=== PATIENT | female | born 1975 | race Caucasian/White ===

== ENCOUNTER 2017-08-25 12:02 | Emergency (ER) | payer MEDICAID ==
[2017-08-25 12:45] VITALS: BMI 22.4
[2017-08-25 12:55] VITALS: TEMP 98.3
[2017-08-25] MEDS ORDERED: Sodium Chloride 0.9% 1,000 ML IV STA (13:05)
--- NOTE | 2017-08-25 13:15 | ED PDOC ---
Arrival/HPI - General Chief Complaint: Dizziness/Lightheaded Time Seen by Provider: 08/25/17 12:28 Historian: Patient - History of Present Illness Narrative History of Present Illness (Text): 08/25/17 13:12 42yo female with no PMHx who present with complaint of positional dizziness. Notes that symptom started on Tuesday and she was seen at [place] ED and was DC home with Meclizine. States she improved with meclizine and went back to work today, but she became dizzy again today at work. She describes dizziness and spinning sensation. Also reports tinnitus to her left ear and nausea and vomiting. States she took Meclizine this morning. +Frontal headache. Denies neck pain, focal weakness, slurred speech, nuchal ridgity, fever, chills, any other complaint. Past Medical History - Provider Review Nursing Documentation Reviewed: Yes - Infectious Disease Hx of Infectious Diseases: None - Neurological Hx Vertigo: Yes - Psychiatric Hx Substance Use: No - Anesthesia Hx Anesthesia: No Family/Social History - Physician Review Nursing Documentation Reviewed: Yes Family/Social History: Unknown Family HX Smoking Status: Never Smoked Hx Alcohol Use: No Hx Substance Use: No Allergies/Home Meds Allergies/Adverse Reactions: Allergies No Known Allergies Allergy (Verified 08/25/17 12:45) Home Medications: Home Meds Medication Instructions Recorded Confirmed Meclizine HCl [Bonine] 1 tab PO TID 08/25/17 08/25/17 Oxybutynin Chloride [Oxybutynin 1 tab PO DAILY 08/25/17 08/25/17 Chloride ER] Review of Systems - Physician Review All systems were reviewed & negative as marked: Yes - Review of Systems Constitutional: Normal Eyes: Normal ENT: Normal Respiratory: Normal Cardiovascular: Normal Gastrointestinal: Normal Genitourinary Female: Normal Musculoskeletal: Normal Skin: Normal Neurological: Dizziness. absent: Focal Weakness, Speech Changes, Facial Droop Endocrine: Normal Hemo/Lymphatic: Normal Psychiatric: Normal Physical Exam Vital Signs Reviewed: Yes Vital Signs Temp Pulse Resp BP Pulse Ox 08/25/17 13:53 65 18 130/56 L 100 08/25/17 12:51 98.3 F 63 18 95/73 L 100 Temperature: Afebrile Blood Pressure: Normal Pulse: Regular Respiratory Rate: Normal Appearance: Positive for: Well-Appearing, Non-Toxic, Comfortable Pain Distress: None Mental Status: Positive for: Alert and Oriented X 3 - Systems Exam Head: Present: Atraumatic, Normocephalic Pupils: Present: PERRL Extroacular Muscles: Present: EOMI Conjunctiva: Present: Normal Mouth: Present: Moist Mucous Membranes Neck: Present: Normal Range of Motion Respiratory/Chest: Present: Clear to Auscultation, Good Air Exchange. No: Respiratory Distress, Accessory Muscle Use Cardiovascular: Present: Regular Rate and Rhythm, Normal S1, S2. No: Murmurs Abdomen: No: Tenderness, Distention, Peritoneal Signs Back: Present: Normal Inspection Upper Extremity: Present: Normal Inspection. No: Cyanosis, Edema Lower Extremity: Present: Normal Inspection. No: Edema Neurological: Present: GCS=15, CN II-XII Intact, Speech Normal, Motor Func Grossly Intact, Normal Sensory Function, Normal Cerebellar Funct, Norm Deep Tendon Reflexes, Gait Normal, Memory Normal, Normal 2Pt Descrimination, Other ( No focal neurological deficit) Skin: Present: Warm, Dry, Normal Color. No: Rashes Psychiatric: Present: Alert, Oriented x 3, Normal Insight, Normal Concentration Medical Decision Making ED Course and Treatment: 08/25/17 14:23 Pt presented for stated history. she was neurologically intact in ED. On re evaluation she notes that her symptoms improved. Lab was noted with mild leukocytosis, otherwise unremarkable. Head CT was negative. Dizziness could be vertigo secondary to labyrinthitis Result was DW the pt. She already have meclizine at home. She was advised to take it every 6hrs as needed for dizziness. Reglan rx was given. She was referred to ENT/Neurologist. - Lab Interpretations Lab Results: 08/25/17 13:20 08/25/17 13:20 Lab Results 08/25/17 13:20: Sodium 145, Potassium 3.6, Chloride 107, Carbon Dioxide 27, Anion Gap 14, BUN 11, Creatinine 0.5 L, Est GFR ( Amer) > 60, Est GFR ( Non-Af Amer) > 60, Random Glucose 90, Calcium 8.9, Total Bilirubin 0.2, AST 26, ALT 31, Alkaline Phosphatase 63, Total Protein 7.1, Albumin 4.3, Globulin 2.7, Albumin/Globulin Ratio 1.6 08/25/17 13:20: Urine Color Yellow, Urine Appearance Clear, Urine pH 6.0, Ur Specific [place] 1.010, Urine Protein Negative, Urine Glucose (UA) Negative, Urine Ketones Negative, Urine Blood Trace-lysed H, Urine Nitrate Negative, Urine Bilirubin Negative, Urine Urobilinogen 0.2, Ur Leukocyte Esterase Negative , Urine RBC Negative, Urine WBC Negative, Ur Epithelial Cells 0 - 2 08/25/17 13:20: PT 11.8, INR 1.03, APTT 28.1 08/25/17 13:20: WBC 11.6 H, RBC 4.35, Hgb 13.3, Hct 39.5, MCV 90.8, MCH 30.6, MCHC 33.7, RDW 12.7, Plt Count 208, MPV 10.5, Gran % 78.1 H, Lymph % (Auto) 17.5 L, [place] % (Auto) 3.9, Eos % (Auto) 0.3 L, Baso % (Auto) 0.2, Gran # 9.08 H , Lymph # (Auto) 2.0, [place] # (Auto) 0.5, Eos # (Auto) 0.0, Baso # (Auto) 0.02 - RAD Interpretation Radiology Orders: 08/25/17 13:31 HEAD W/O CONTRAST [CT] Stat - Medication Orders Current Medication Orders: Metoclopramide HCl (Reglan) 10 mg IVP STAT STA Stop: 08/25/17 14:21 Discontinued Medications Acetaminophen (Tylenol 325mg Tab) 650 mg PO STAT STA Stop: 08/25/17 13:32 Last Admin: 08/25/17 14:05 Dose: 650 mg Diphenhydramine HCl (Benadryl) 25 mg IVP STAT STA Stop: 08/25/17 13:32 Last Admin: 08/25/17 14:07 Dose: 25 mg IVP Administration Document 08/25/17 14:07 SS (Rec: 08/25/17 14:07 SS [id number]) Charges for Administration # of IVP Administrations 1 Sodium Chloride (Sodium Chloride 0.9%) 1,000 mls @ 999 mls/hr IV .Q1H1M STA Stop: 08/25/17 14:05 Last Admin: 08/25/17 13:36 Dose: 999 mls/hr eMAR Start Stop Document 08/25/17 13:36 SS (Rec: 08/25/17 13:36 SS [id number]) Intravenous Solution Start Date 08/25/17 Start Time 13:36 End Date 08/25/17 End time 14:36 Total Infusion Time 60 Meclizine HCl (Antivert) 25 mg PO STAT STA Stop: 08/25/17 13:07 Last Admin: 08/25/17 13:32 Dose: 25 mg Disposition/Present on Arrival - Present on Arrival Any Indicators Present on Arrival: No History of DVT/PE: No History of Uncontrolled Diabetes: No Urinary Catheter: No History of Decub. Ulcer: No History Surgical Site Infection Following: None - Disposition Have Diagnosis and Disposition been Completed?: Yes Diagnosis: Vertigo Disposition: HOME/ ROUTINE Disposition Time: 14:30 Patient Plan: Discharge Condition: STABLE Discharge Instructions (ExitCare): Vertigo (a Type of Dizziness), Labyrinthitis Additional Instructions: Follow up with ENT/Neurologist Return to ED for any new or worsening symptoms Referrals: Chandler Barrera DO [Staff Provider] - Follow up with primary Gopal Ramírez MD [Staff Provider] - Follow up with primary Forms: [employer] (Yemeni)
[2017-08-25] MEDS ORDERED: DiphenhydrAMINE 50 mg/ml Inj IVP STA (13:31)
[2017-08-25 13:49] LABS: BASO # 0.02 K/mm3 (0.0-2.0); BASO % 0.2 % (0.0-3.0); EOS % 0.3 % (1.5-5.0); GRAN # 9.08 (1.4-6.5); GRAN % 78.1 % (50.0-68.0); HEMOGLOBIN 13.3 g/dL (12.0-16.0); LYMPH % 17.5 % (22.0-35.0); MEAN CELL VOLUME 90.8 fl (80.0-105.0); MEAN CORPUSCULAR HEMOGLOBIN 30.6 pg (25.0-35.0); MEAN CORPUSCULAR HGB CONC 33.7 g/dl (31.0-37.0); MEAN PLATELET VOLUME 10.5 fl (7.0-11.0); MONO # 0.5 (0.1-0.6); MONO % 3.9 % (1.0-6.0); RBC 4.35 10^6/uL (3.5-6.1); RED CELL DISTRIBUTION WIDTH 12.7 % (11.5-14.5); WHITE BLOOD COUNT 11.6 10^3/ul (4.5-11.0)
[2017-08-25 13:50] LABS: URINE BILIRUBIN NEGATIVE (NEGATIVE); URINE BLOOD TRACE-LYSED (NEGATIVE); URINE GLUCOSE (UA) NEGATIVE (NEGATIVE); URINE LEUKOCYTE ESTERASE NEGATIVE Leu/uL (NEGATIVE); URINE PROTEIN NEGATIVE mg/dL (<30 mg/dL); URINE UROBILINOGEN 0.2 E.U./dL (<1 E.U./dL)
--- NOTE | 2017-08-25 13:52 | CT ---
PROCEDURE: CT HEAD WITHOUT CONTRAST. HISTORY: dizziness/headache COMPARISON: None available. TECHNIQUE: Axial computed tomography images were obtained through the head/brain without intravenous contrast. Radiation dose: Total exam DLP = 903 mGy-cm. This CT exam was performed using one or more of the following dose reduction techniques: Automated exposure control, adjustment of the mA and/or kV according to patient size, and/or use of iterative reconstruction technique. FINDINGS: HEMORRHAGE: No intracranial hemorrhage. BRAIN: No mass effect or edema. No atrophy or chronic microvascular ischemic changes. VENTRICLES: Unremarkable. No hydrocephalus. CALVARIUM: Unremarkable. PARANASAL SINUSES: Unremarkable as visualized. No significant inflammatory changes. MASTOID AIR CELLS: Unremarkable as visualized. No inflammatory changes. OTHER FINDINGS: None. IMPRESSION: Normal CT of the Head.
[2017-08-25 13:54] LABS: INR 1.03 (0.93-1.08); PARTIAL THROMBOPLASTIN TIME 28.1 Seconds (25.1-36.5); PROTHROMBIN TIME 11.8 SECONDS (9.4-12.5); URINE APPEARANCE CLEAR (CLEAR); URINE COLOR YELLOW (YELLOW)
[2017-08-25 13:58] LABS: ALB/GLOB RATIO 1.6 (1.1-1.8); ALBUMIN 4.3 g/dL (3.0-4.8); ALT/SGPT 31 U/L (7-56); AST/SGOT 26 U/L (14-36); BLOOD UREA NITROGEN 11 mg/dL (7-21); CALCIUM 8.9 mg/dL (8.4-10.5); GFR AFRICAN-AMERICAN > 60; GFR NON-AFRICAN AMERICAN > 60
[2017-08-25 14:05] LABS: URINE EPITHELIAL CELLS 0 - 2 /hpf (0-5); URINE RBC NEGATIVE /hpf (0-2); URINE WBC NEGATIVE /hpf (0-6)
[2017-08-25 14:53] VITALS: BP 113/70; PULSE 77; O2SAT 98
[2017-08-25 16:18] VITALS: RESP 18
== END 2017-08-25 16:16 | disposition home or self-care (01) ==
LOC: ED 12:02 → MERGE 12:02 → ED 16:16
DX: R42 Dizziness and giddiness (principal)
CPT/HCPCS: 70450; 80053; 81001; 85025; 85610; 85730; 96361; 96374; 96375; 99285; J1200; J2765; J7040

== ENCOUNTER 2017-09-12 17:06 | Inpatient (IN) | payer MEDICAID ==
[2017-09-12] MEDS ORDERED: Sodium Chloride 0.9% 1,000 ML IV STA (17:41)
--- NOTE | 2017-09-12 17:45 | ED PDOC ---
Arrival/HPI - General Chief Complaint: Dizziness/Lightheaded Time Seen by Provider: 09/12/17 17:12 Historian: Patient, Family - History of Present Illness Narrative History of Present Illness (Text): 09/12/17 17:42 42 year old female presents to the Emergency department complaining of dizziness described as room-spinning, as well as nausea, vomiting, and headache. Patient reports symptoms began approximately 2 weeks ago when she was evaluated here in the Emergency department. Patient has been taking Prednisone and Meclizine. Today the patient took Meclizine x1 at 15:00. Patient denies any fever, chills, chest pain, shortness of breath, diarrhea, urinary symptoms, back pain, neck pain, or any other complaints. Dr. Hirsch Time/Duration: < month (2 weeks ago) Symptom Onset: Gradual Symptom Course: Unchanged Activities at Onset: Rest Context: Home Past Medical History - Provider Review Nursing Documentation Reviewed: Yes - Past History Past History: No Previous - Infectious Disease Hx of Infectious Diseases: None - Past Medical History Past Medical History: No Previous - Cardiac Hx Cardiac Disorders: No - Pulmonary Hx Respiratory Disorders: No - Neurological Hx Neurological Disorder: Yes Hx Vertigo: Yes - HEENT Hx HEENT Disorder: Yes Other/Comment: RECENTLY SEEN BY ENT - Renal Hx Renal Disorder: No - Endocrine/Metabolic Hx Endocrine Disorders: No - Hematological/Oncological Hx Blood Disorders: No - Integumentary Hx Dermatological Disorder: No - Musculoskeletal/Rheumatological Hx Musculoskeletal Disorders: No - Gastrointestinal Hx Gastrointestinal Disorders: No - Genitourinary/Gynecological Hx Genitourinary Disorders: No - Psychiatric Hx Psychophysiologic Disorder: No Hx Substance Use: No - Surgical History Hx Section: Yes - Anesthesia Hx Anesthesia: Yes Family/Social History - Physician Review Nursing Documentation Reviewed: Yes Family/Social History: Unknown Family HX Smoking Status: Never Smoked Hx Alcohol Use: No Hx Substance Use: No Allergies/Home Meds Allergies/Adverse Reactions: Allergies No Known Allergies Allergy (Verified 09/12/17 17:15) Review of Systems - Physician Review All systems were reviewed & negative as marked: Yes - Review of Systems Constitutional: absent: Fevers, Night Sweats Respiratory: absent: SOB Cardiovascular: absent: Chest Pain Gastrointestinal: Nausea, Vomiting. absent: Diarrhea Genitourinary Female: absent: Dysuria Musculoskeletal: absent: Back Pain, Neck Pain Neurological: Headache, Dizziness Physical Exam Vital Signs Reviewed: Yes Vital Signs Temp Pulse Resp BP Pulse Ox 09/12/17 21:35 72 18 112/69 98 09/12/17 17:17 97.5 F L 69 16 94/63 L 97 Temperature: Hypothermic Blood Pressure: Hypotensive Pulse: Regular Respiratory Rate: Normal Appearance: Positive for: Well-Appearing, Non-Toxic, Comfortable Pain Distress: None Mental Status: Positive for: Alert and Oriented X 3 - Systems Exam Head: Present: Atraumatic, Normocephalic Pupils: Present: Other (horizontal nystagmus) Extroacular Muscles: Present: EOMI Conjunctiva: Present: Normal Mouth: Present: Moist Mucous Membranes Neck: Present: Normal Range of Motion Respiratory/Chest: Present: Clear to Auscultation, Good Air Exchange. No: Respiratory Distress, Accessory Muscle Use Cardiovascular: Present: Regular Rate and Rhythm, Normal S1, S2. No: Murmurs Abdomen: No: Tenderness, Distention, Peritoneal Signs Back: Present: Normal Inspection Upper Extremity: Present: Normal Inspection. No: Cyanosis, Edema Lower Extremity: Present: Normal Inspection. No: Edema Neurological: Present: GCS=15, CN II-XII Intact, Speech Normal Skin: Present: Warm, Dry, Normal Color. No: Rashes Psychiatric: Present: Alert, Oriented x 3, Normal Insight, Normal Concentration Medical Decision Making ED Course and Treatment: 09/12/17 17:49 Impression: 42 year old female presents to the Emergency department complaining of dizziness with associated nausea, vomiting, and headache. Differential Diagnosis included but are not limited to: vertigo Plan: -- Urinalysis -- Labs -- Antivert, Zofran, Sodium Chloride IV fluids -- Reassess and disposition Prior Visits: Notes and results from previous visits were reviewed. Patient was last seen in the emergency department on 08/25/17, was diagnosed with vertigo, and was discharged home. Progress Notes: 09/16/17 22:31 persistent vertigo, symptoms mildly improved. discussed with dr covington accepts for obs - Lab Interpretations Lab Results: 09/14/17 08:00 09/14/17 08:00 Lab Results 09/14/17 08:00: 25-OH Vitamin D Total 14.5 L 09/14/17 08:00: Vitamin B12 720, Free T3 pg/mL 4.44 09/14/17 08:00: Sodium 138, Potassium 3.8, Chloride 103, Carbon Dioxide 27, Anion Gap 12, BUN 19, Creatinine 0.7, Est GFR ( Amer) > 60, Est GFR (Non- Af Amer) > 60, Random Glucose 81, Calcium 8.5, Total Bilirubin 0.6, AST 14, ALT 28, Alkaline Phosphatase 48, Total Protein 5.9, Albumin 3.3, Globulin 2.6, Albumin/Globulin Ratio 1.3 09/14/17 08:00: WBC 10.1, RBC 4.81, Hgb 14.8, Hct 43.3, MCV 90.0, MCH 30.8, MCHC 34.2, RDW 12.7, Plt Count 197, MPV 9.6, Gran % 52.7, Lymph % (Auto) 39.0 H , [place] % (Auto) 7.5 H, Eos % (Auto) 0.7 L, Baso % (Auto) 0.1, Gran # 5.30, Lymph # (Auto) 3.9 H, [place] # (Auto) 0.8 H, Eos # (Auto) 0.1, Baso # (Auto) 0.01 09/13/17 12:30: Influenza Typ A,B (EIA) Negative for flu a/b 09/13/17 11:31: Urine Color Yellow, Urine Appearance Clear, Urine pH 6.0, Ur Specific [place] <= 1.005, Urine Protein Negative, Urine Glucose (UA) Negative, Urine Ketones Negative, Urine Blood Negative, Urine Nitrate Negative, Urine Bilirubin Negative, Urine Urobilinogen 0.2, Ur Leukocyte Esterase Negative, Urine HCG, Qual Negative 09/13/17 05:30: Sodium 139, Potassium 3.8, Chloride 105, Carbon Dioxide 27, Anion Gap 11, BUN 13, Creatinine 0.5 L, Est GFR ( Amer) > 60, Est GFR ( Non-Af Amer) > 60, Random Glucose 76, Calcium 8.6, Phosphorus 5.0 H, Magnesium 2.2, Total Bilirubin 0.7, AST 16, ALT 29, Alkaline Phosphatase 45, Total Protein 5.8, Albumin 3.2, Globulin 2.6, Albumin/Globulin Ratio 1.3 09/13/17 05:30: WBC 12.5 H, RBC 4.41, Hgb 13.5, Hct 39.9, MCV 90.5, MCH 30.6, MCHC 33.8, RDW 12.9, Plt Count 215, MPV 10.1, Gran % 59.5, Lymph % (Auto) 32.4, [place] % (Auto) 7.4 H, Eos % (Auto) 0.6 L, Baso % (Auto) 0.1, Gran # 7.44 H, Lymph # (Auto) 4.1 H, [place] # (Auto) 0.9 H, Eos # (Auto) 0.1, Baso # (Auto) 0.01 09/12/17 19:28: PT 11.8, INR 1.03 09/12/17 18:30: Beta HCG, Quant < 2.39 09/12/17 18:30: Sodium 136, Potassium 3.6, Chloride 101, Carbon Dioxide 25, Anion Gap 14, BUN 15, Creatinine 0.4 L, Est GFR ( Amer) > 60, Est GFR ( Non-Af Amer) > 60, Random Glucose 117 H, Calcium 8.9, Total Bilirubin 0.6, AST 14 D, ALT 25, Alkaline Phosphatase 57, Total Protein 6.2, Albumin 3.6, Globulin 2.6, Albumin/Globulin Ratio 1.4 09/12/17 18:30: WBC 14.6 H D, RBC 4.18, Hgb 13.1, Hct 37.2, MCV 89.0, MCH 31.3, MCHC 35.2, RDW 12.6, Plt Count 150, MPV 11.7 H, Gran % 85.7 H, Lymph % (Auto) 10.7 L, [place] % (Auto) 3.4, Eos % (Auto) 0.1 L, Baso % (Auto) 0.1, Gran # 12.55 H , Lymph # (Auto) 1.6, [place] # (Auto) 0.5, Eos # (Auto) 0.0, Baso # (Auto) 0.01 - RAD Interpretation Radiology Orders: 09/13/17 09:36 HEAD W/O CONTRAST [CT] Stat 09/13/17 10:38 BRAIN WITHOUT CONTRAST [MRI] Stat 09/14/17 09:22 BRAIN WITH CONTRAST [MRI] Stat - Medication Orders Current Medication Orders: Discontinued Medications Diazepam (Valium) 2 mg PO STAT STA PRN Reason: Protocol Stop: 09/12/17 19:08 Last Admin: 09/12/17 19:22 Dose: 2 mg Diazepam (Valium) 5 mg PO BID JUAREZ PRN Reason: Protocol Last Admin: 09/14/17 09:14 Dose: 5 mg Behavioural Document 09/14/17 09:14 VS (Rec: 09/14/17 09:14 VS [id number]) Maintenance Maintenance Dose Yes Re-Assess: Reassess Psych Meds Document 09/14/17 10:14 VS (Rec: 09/14/17 11:00 VS [id number]) Reassess Psych Med Effective Diazepam (Valium) 2 mg PO Q12 JUAREZ PRN Reason: Protocol Last Admin: 09/16/17 09:02 Dose: Not Given Non-Admin Reason: Patient Refused Enoxaparin Sodium (Lovenox) 30 mg SC DAILY JUAREZ PRN Reason: Protocol Last Admin: 09/16/17 09:01 Dose: 30 mg Subcutaneous Administrations Document 09/16/17 09:01 BIR (Rec: 09/16/17 09:01 BIR [id number]) Charges for Administration # of Subcutaneous Administrations 1 Ergocalciferol (Drisdol 50,000 Intl Units Cap) 1 cap PO Q7D [facility] Last Admin: 09/14/17 21:09 Dose: 1 cap Famotidine (Pepcid) 20 mg PO 1000,2200 [facility] Last Admin: 09/16/17 09:02 Dose: 20 mg Sodium Chloride (Sodium Chloride 0.9%) 1,000 mls @ 999 mls/hr IV .Q1H1M STA Stop: 09/12/17 18:41 Last Admin: 09/12/17 18:30 Dose: 999 mls/hr eMAR Start Stop Document 09/12/17 18:30 HI (Rec: 09/12/17 18:31 HI [id number]) Intravenous Solution Start Date 09/12/17 Start Time 18:31 Sodium Chloride (Sodium Chloride 0.9%) 1,000 mls @ 100 mls/hr IV .Q10H JUAREZ Stop: 09/14/17 21:44 Last Admin: 09/14/17 12:15 Dose: 100 mls/hr Comments: med not able to scan eMAR Start Stop Document 09/14/17 12:15 VS (Rec: 09/14/17 12:15 VS [id number]) Intravenous Solution Start Date 09/14/17 Start Time 12:15 End Date 09/14/17 Meclizine HCl (Antivert) 25 mg PO STAT STA Stop: 09/12/17 17:42 Last Admin: 09/12/17 18:31 Dose: 25 mg Meclizine HCl (Antivert) 12.5 mg PO Q6H PRN PRN Reason: vertigo Meclizine HCl (Antivert) 25 mg PO Q6H JUAREZ Last Admin: 09/14/17 05:36 Dose: 25 mg Meclizine HCl (Antivert) 25 mg PO Q6H JUAREZ Last Admin: 09/16/17 05:23 Dose: 25 mg Ondansetron HCl (Zofran Inj) 4 mg IVP STAT STA Stop: 09/12/17 17:42 Last Admin: 09/12/17 18:31 Dose: 4 mg IVP Administration Document 09/12/17 18:31 HI (Rec: 09/12/17 18:31 PA [id number]) Charges for Administration # of IVP Administrations 1 Ondansetron HCl (Zofran Inj) 4 mg IVP Q6H PRN PRN Reason: Nausea/Vomiting - Scribe Statement The provider has reviewed the documentation as recorded by the Star Carbone Provider Scribe Attestation: All medical record entries made by the Lolaiberic were at my direction and personally dictated by me. I have reviewed the chart and agree that the record accurately reflects my personal performance of the history, physical exam, medical decision making, and the department course for this patient. I have also personally directed, reviewed, and agree with the discharge instructions and disposition. Disposition/Present on Arrival - Present on Arrival Any Indicators Present on Arrival: No History of DVT/PE: No History of Uncontrolled Diabetes: No Urinary Catheter: No History of Decub. Ulcer: No History Surgical Site Infection Following: None - Disposition Have Diagnosis and Disposition been Completed?: Yes Diagnosis: Vertigo Disposition: HOSPITALIZED Disposition Time: 07:00 Condition: STABLE
[2017-09-12 18:39] LABS: BASO # 0.01 K/mm3 (0.0-2.0); BASO % 0.1 % (0.0-3.0); EOS % 0.1 % (1.5-5.0); GRAN # 12.55 (1.4-6.5); GRAN % 85.7 % (50.0-68.0); HEMOGLOBIN 13.1 g/dL (12.0-16.0); LYMPH # 1.6 (1.2-3.4); LYMPH % 10.7 % (22.0-35.0); MEAN CORPUSCULAR HEMOGLOBIN 31.3 pg (25.0-35.0); MEAN CORPUSCULAR HGB CONC 35.2 g/dl (31.0-37.0); MEAN PLATELET VOLUME 11.7 fl (7.0-11.0); MONO # 0.5 (0.1-0.6); MONO % 3.4 % (1.0-6.0); RBC 4.18 10^6/uL (3.5-6.1); RED CELL DISTRIBUTION WIDTH 12.6 % (11.5-14.5); WHITE BLOOD COUNT 14.6 10^3/ul (4.5-11.0)
[2017-09-12 18:57] LABS: ALB/GLOB RATIO 1.4 (1.1-1.8); ALBUMIN 3.6 g/dL (3.0-4.8); ALT/SGPT 25 U/L (7-56); AST/SGOT 14 U/L (14-36); BLOOD UREA NITROGEN 15 mg/dL (7-21); CALCIUM 8.9 mg/dL (8.4-10.5); GFR AFRICAN-AMERICAN > 60; GFR NON-AFRICAN AMERICAN > 60
[2017-09-12 19:45] LABS: INR 1.03 (0.93-1.08); PROTHROMBIN TIME 11.8 SECONDS (9.4-12.5)
--- NOTE | 2017-09-12 22:22 | CP.PCM.HP ---
<Compa Michaels - Last Filed: 09/12/17 23:28> History of Present Illness - History of Present Illness History of Present Illness: PGY-1 H&P for Dr. Pérez CC: "I am unable to stand up" This is a 42 year old female with PMHx vertigo who presents for worsening dizziness. Patient states that she was diagnosed with vertigo about 4 weeks ago. She went to see ENT who prescribed a Prednisone taper of which the last dose was scheduled for this morning. Patient states that the steroids did help to alleviate the symptoms. She first noticed mild dizziness yesterdayafternoon, but as of 15:00 today, it has worsened to the point where she feels that the room is spinning even at rest. She has vomited twice today and is still nauseous. However, she was able to tolerate some apple juice given in the ED. Patient states that she had some tinnitus in her left ear as of this morning. She denies headache but is complaining of some intermittent numbness on the right side of the cheek. Patient also complaining of weakness secondary to dizziness and nausea. In the ED, she was given Valium which helped briefly as well as the Bayron maneuver which did not help relieve any symptoms. PMHx: Vertigo PSHx: x2, appendectomy Allergies: NKDA Social: Denies alcohol, tobacco, drugs. Lives with and 2 children. Pre- school worker. Family Hx: Denies Home medications: Meclizine, just finished Prednisone taper prescribed by ENT PMD: Dr. Hirsch ENT: Dr. Sheikh Present on Admission - Present on Admission Any Indicators Present on Admission: No Review of Systems - Constitutional Constitutional: absent: Chills, Fever - EENT Eyes: absent: Change in Vision Ears: absent: Decreased Hearing Nose/Mouth/Throat: absent: Nasal Congestion - Cardiovascular Cardiovascular: absent: Chest Pain - Respiratory Respiratory: absent: Dyspnea - Gastrointestinal Gastrointestinal: Nausea, Vomiting. absent: Abdominal Pain, Constipation, Diarrhea - Genitourinary Genitourinary: absent: Dysuria - Musculoskeletal Musculoskeletal: Numbness - Neurological Neurological: Dizziness, Numbness, Vertigo, Weakness. absent: Tingling - Psychiatric Psychiatric: absent: Anxiety - Endocrine Endocrine: absent: Palpitations Past Patient History - Infectious Disease Hx of Infectious Diseases: None - Past Social History Smoking Status: Never Smoked - CARDIAC Hx Cardiac Disorders: No - PULMONARY Hx Respiratory Disorders: No - NEUROLOGICAL Hx Neurological Disorder: Yes Hx Vertigo: Yes - HEENT Hx HEENT Problems: Yes Other/Comment: RECENTLY SEEN BY ENT - RENAL Hx Chronic Kidney Disease: No - ENDOCRINE/METABOLIC Hx Endocrine Disorders: No - HEMATOLOGICAL/ONCOLOGICAL Hx Blood Disorders: No - INTEGUMENTARY Hx Dermatological Problems: No - MUSCULOSKELETAL/RHEUMATOLOGICAL Hx Musculoskeletal Disorders: No - GASTROINTESTINAL Hx Gastrointestinal Disorders: No - GENITOURINARY/GYNECOLOGICAL Hx Genitourinary Disorders: No - PSYCHIATRIC Hx Psychophysiologic Disorder: No Hx Substance Use: No - SURGICAL HISTORY Hx Section: Yes - ANESTHESIA Hx Anesthesia: Yes Meds Allergies/Adverse Reactions: Allergies Allergy/AdvReac Type Severity Reaction Status Date / Time No Known Allergies Allergy Verified 09/12/17 17:15 Physical Exam - Constitutional Appears: No Acute Distress - Head Exam Head Exam: ATRAUMATIC, NORMOCEPHALIC - Eye Exam Eye Exam: EOMI, PERRL - ENT Exam ENT Exam: Mucous Membranes Moist, Normal External Ear Exam, TM's Normal Bilaterally - Respiratory Exam Respiratory Exam: Clear to Auscultation Bilateral, NORMAL BREATHING PATTERN. absent: Rales, Rhonchi, Wheezes - Cardiovascular Exam Cardiovascular Exam: REGULAR RHYTHM, +S1, +S2 - GI/Abdominal Exam GI & Abdominal Exam: Normal Bowel Sounds, Soft. absent: Distended, Tenderness - Extremities Exam Extremities exam: Negative for: pedal edema - Neurological Exam Neurological exam: Alert, CN II-XII Intact, Oriented x3 Additional comments: Muscle strength 4/5 throughout, effort limited due to dizziness - Psychiatric Exam Psychiatric exam: Normal Affect, Normal Mood - Skin Skin Exam: Dry, Warm Results - Vital Signs Recent Vital Signs: Last Vital Signs Temp 97.5 F L 09/12/17 17:17 Pulse 69 09/12/17 17:17 Resp 16 09/12/17 17:17 BP 94/63 L 09/12/17 17:17 Pulse Ox 97 09/12/17 17:17 - Labs Result Diagrams: 09/12/17 18:30 09/12/17 18:30 Assessment & Plan - Assessment and Plan (Free Text) Assessment: This is a 42 year old female with PMHx vertigo who presents for worsening dizziness. Plan: 1. Vertigo Head CT not repeated as recent one on record with no acute abnormalities Valium 5 mg PO BID JUAREZ Meclizine Q6 prn dizziness Neurology consult Considered MRI but will defer to neurology input Zofran prn Discussed with Dr. Beto Michaels PGY-1 <Sixto Pérez - Last Filed: 09/13/17 01:49> Results - Vital Signs Recent Vital Signs: Last Vital Signs Temp 98 F 09/13/17 01:08 Pulse 74 09/13/17 01:08 Resp 19 09/13/17 01:08 BP 120/76 09/13/17 01:08 Pulse Ox 98 09/12/17 22:22 - Labs Result Diagrams: 09/12/17 18:30 09/12/17 18:30 Attending/Attestation - Attestation I have personally seen and examined this patient.: Yes I have fully participated in the care of the patient.: Yes I have reviewed all pertinent clinical information: Yes Notes (Text): 09/13/17 01:48 Patient was seen when she was in bed # 7 in the ER. Agree with history, physical examination, assessment and plan.
[2017-09-13 01:23] VITALS: BMI 26.4
[2017-09-13 06:32] LABS: BASO # 0.01 K/mm3 (0.0-2.0); BASO % 0.1 % (0.0-3.0); EOS # 0.1 (0.0-0.7); EOS % 0.6 % (1.5-5.0); GRAN # 7.44 (1.4-6.5); GRAN % 59.5 % (50.0-68.0); HEMOGLOBIN 13.5 g/dL (12.0-16.0); LYMPH # 4.1 (1.2-3.4); LYMPH % 32.4 % (22.0-35.0); MEAN CELL VOLUME 90.5 fl (80.0-105.0); MEAN CORPUSCULAR HEMOGLOBIN 30.6 pg (25.0-35.0); MEAN CORPUSCULAR HGB CONC 33.8 g/dl (31.0-37.0); MEAN PLATELET VOLUME 10.1 fl (7.0-11.0); MONO # 0.9 (0.1-0.6); MONO % 7.4 % (1.0-6.0); RBC 4.41 10^6/uL (3.5-6.1); RED CELL DISTRIBUTION WIDTH 12.9 % (11.5-14.5); WHITE BLOOD COUNT 12.5 10^3/ul (4.5-11.0)
[2017-09-13 07:53] LABS: ALB/GLOB RATIO 1.3 (1.1-1.8); ALBUMIN 3.2 g/dL (3.0-4.8); ALT/SGPT 29 U/L (7-56); AST/SGOT 16 U/L (14-36); BLOOD UREA NITROGEN 13 mg/dL (7-21); CALCIUM 8.6 mg/dL (8.4-10.5); GFR AFRICAN-AMERICAN > 60; GFR NON-AFRICAN AMERICAN > 60
--- NOTE | 2017-09-13 10:37 | CT ---
PROCEDURE: CT HEAD WITHOUT CONTRAST. HISTORY: r/o cva COMPARISON: 08/25/2017 TECHNIQUE: Axial computed tomography images were obtained through the head/brain without intravenous contrast. Radiation dose: Total exam DLP = 922 mGy-cm. This CT exam was performed using one or more of the following dose reduction techniques: Automated exposure control, adjustment of the mA and/or kV according to patient size, and/or use of iterative reconstruction technique. FINDINGS: HEMORRHAGE: No intracranial hemorrhage. BRAIN: No mass effect or edema. No atrophy or chronic microvascular ischemic changes. VENTRICLES: Unremarkable. No hydrocephalus. CALVARIUM: Unremarkable. PARANASAL SINUSES: Unremarkable as visualized. No significant inflammatory changes. MASTOID AIR CELLS: Unremarkable as visualized. No inflammatory changes. OTHER FINDINGS: None. IMPRESSION: No acute intracranial findings
[2017-09-13 11:41] LABS: URINE BILIRUBIN NEGATIVE (NEGATIVE); URINE BLOOD NEGATIVE (NEGATIVE); URINE GLUCOSE (UA) NEGATIVE (NEGATIVE); URINE LEUKOCYTE ESTERASE NEGATIVE Leu/uL (NEGATIVE); URINE PROTEIN NEGATIVE mg/dL (<30 mg/dL); URINE UROBILINOGEN 0.2 E.U./dL (<1 E.U./dL)
[2017-09-13 11:42] LABS: HCG,QUALITATIVE URINE NEGATIVE (NEGATIVE)
[2017-09-13 12:01] LABS: URINE APPEARANCE CLEAR (CLEAR); URINE COLOR YELLOW (YELLOW)
--- NOTE | 2017-09-13 12:43 | CP.PCM.CON ---
History of Present Illness - History of Present Illness History of Present Illness: 42 yr old woman with 4 week history of dizziness, that is worse on sitting, and has required her to present to [facility]. Dizziness was not accompanied by otalgia, ataxia but was present with headache 10/10, and nausea. 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 She denies prior events, head trauma or recent change in medications. PMH/PSH: none Fh/SH: works in preschool.Has 2 children, . All: nkda. on exam: Normal neuro exam except for difficulty standing with eyes closed- rhomberg in every direction. Walks well but slow and has no dysmetria. Past Patient History - Infectious Disease Hx of Infectious Diseases: None - Past Social History Smoking Status: Never Smoked - CARDIAC Hx Cardiac Disorders: No - PULMONARY Hx Respiratory Disorders: No - NEUROLOGICAL Hx Dizziness: Yes Hx Migraine: Yes Other/Comment: VERTIGO - HEENT Hx HEENT Problems: Yes Other/Comment: RECENTLY SEEN BY ENT - RENAL Hx Chronic Kidney Disease: No - ENDOCRINE/METABOLIC Hx Endocrine Disorders: No - HEMATOLOGICAL/ONCOLOGICAL Hx Blood Disorders: No - INTEGUMENTARY Hx Dermatological Problems: No - MUSCULOSKELETAL/RHEUMATOLOGICAL Hx Falls: No - GASTROINTESTINAL Hx Gastrointestinal Disorders: No - GENITOURINARY/GYNECOLOGICAL Other/Comment: X2 - PSYCHIATRIC Hx Substance Use: No - SURGICAL HISTORY Hx Surgeries: Yes Hx Appendectomy: Yes Other/Comment: X2 - ANESTHESIA Hx Anesthesia: Yes Meds Allergies/Adverse Reactions: Allergies Allergy/AdvReac Type Severity Reaction Status Date / Time No Known Allergies Allergy Verified 09/12/17 17:15 - Medications Medications: Current Medications Diazepam (Valium) 5 mg PO BID [facility] PRN Reason: Protocol Last Admin: 09/13/17 09:27 Dose: 5 mg Famotidine (Pepcid) 20 mg PO 1000,2200 [facility] Last Admin: 09/13/17 09:27 Dose: 20 mg Meclizine HCl (Antivert) 25 mg PO Q6H [facility] Last Admin: 09/13/17 11:21 Dose: 25 mg Ondansetron HCl (Zofran Inj) 4 mg IVP Q6H PRN PRN Reason: Nausea/Vomiting Results - Vital Signs Recent Vital Signs: Last Vital Signs Temp 98.1 F 09/13/17 07:55 Pulse 58 L 06/05/18 07:55 Resp 16 09/13/17 07:55 BP 97/66 L 09/13/17 07:55 Pulse Ox 99 09/13/17 07:55 - Labs Result Diagrams: 09/13/17 05:30 09/13/17 05:30 Labs: Laboratory Results - last 24 hr 09/13/17 09/13/17 09/13/17 05:30 05:30 11:31 WBC 12.5 H RBC 4.41 Hgb 13.5 Hct 39.9 MCV 90.5 MCH 30.6 MCHC 33.8 RDW 12.9 Plt Count 215 MPV 10.1 Gran % 59.5 Lymph % (Auto) 32.4 [place] % (Auto) 7.4 H Eos % (Auto) 0.6 L Baso % (Auto) 0.1 Gran # 7.44 H Lymph # (Auto) 4.1 H [place] # (Auto) 0.9 H Eos # (Auto) 0.1 Baso # (Auto) 0.01 Sodium 139 Potassium 3.8 Chloride 105 Carbon Dioxide 27 Anion Gap 11 BUN 13 Creatinine 0.5 L Est GFR ( Amer) > 60 Est GFR (Non-Af Amer) > 60 Random Glucose 76 Calcium 8.6 Phosphorus 5.0 H Magnesium 2.2 Total Bilirubin 0.7 AST 16 ALT 29 Alkaline Phosphatase 45 Total Protein 5.8 Albumin 3.2 Globulin 2.6 Albumin/Globulin Ratio 1.3 Urine Color Yellow Urine Appearance Clear Urine pH 6.0 Ur Specific [place] <= 1.005 Urine Protein Negative Urine Glucose (UA) Negative Urine Ketones Negative Urine Blood Negative Urine Nitrate Negative Urine Bilirubin Negative Urine Urobilinogen 0.2 Ur Leukocyte Esterase Negative Urine HCG, Qual Negative Assessment & Plan - Assessment and Plan (Free Text) Assessment: 42 yr old woman with what appears to be a bout of vertigo, with normal neurological exam. However, given her age group and acute onset of symptoms, I would recommend MRI BRain with and without binh, to rule out MS. If this is normal, I would discharge home, after performing flu swab. Plan: 1. MRI BRain with binh 2. Physical therapy
--- NOTE | 2017-09-13 15:52 | CP.PCM.PN ---
<Alba Espinosa - Last Filed: 09/13/17 15:44> Subjective - Date & Time of Evaluation Date of Evaluation: 09/13/17 Time of Evaluation: 15:44 - Subjective Subjective: Alba Espinosa, PGY1, Progress Note for Dr Sharp: Patient seen and examined at beside. Pt reports that her dizziness has improved. She reports dizziness with head movements and states that she is having difficulty ambulating as well. Denies fever, chills, nausea, vomiting, abdominal pain, urinary symptoms. Objective - Vital Signs/Intake and Output Vital Signs (last 24 hours): Temp Pulse Resp BP Pulse Ox 98.1 F 58 L 16 97/66 L 99 09/13/17 07:55 09/13/17 07:55 09/13/17 07:55 09/13/17 07:55 09/13/17 07:55 - Medications Medications: Current Medications Diazepam (Valium) 5 mg PO BID [facility] PRN Reason: Protocol Last Admin: 09/13/17 09:27 Dose: 5 mg Famotidine (Pepcid) 20 mg PO 1000,2200 [facility] Last Admin: 09/13/17 09:27 Dose: 20 mg Meclizine HCl (Antivert) 25 mg PO Q6H [facility] Last Admin: 09/13/17 11:21 Dose: 25 mg Ondansetron HCl (Zofran Inj) 4 mg IVP Q6H PRN PRN Reason: Nausea/Vomiting - Labs Labs: 09/13/17 05:30 09/13/17 05:30 PT 11.8 SECONDS (9.4-12.5) 09/12/17 19:28 INR 1.03 (0.93-1.08) 09/12/17 19:28 - Constitutional Appears: Non-toxic, No Acute Distress - Head Exam Head Exam: ATRAUMATIC, NORMOCEPHALIC - Eye Exam Eye Exam: EOMI, Nystagmus, PERRL. absent: Conjunctival injection, Periorbital swelling, Periorbital tenderness, Scleral icterus Pupil Exam: NORMAL ACCOMODATION, PERRL. absent: Irregular, Miosis, Mydriatic - ENT Exam ENT Exam: Mucous Membranes Moist - Neck Exam Neck Exam: Full ROM - Respiratory Exam Respiratory Exam: Clear to Ausculation Bilateral, NORMAL BREATHING PATTERN. absent: Accessory Muscle Use, Rhonchi, Wheezes, Stridor - Cardiovascular Exam Cardiovascular Exam: RRR, +S1, +S2. absent: Murmur - GI/Abdominal Exam GI & Abdominal Exam: Soft, Normal Bowel Sounds. absent: Firm, Guarding, Rigid, Tenderness, Organomegaly - Extremities Exam Extremities Exam: Normal Inspection. absent: Calf Tenderness, Pedal Edema - Back Exam Back Exam: NORMAL INSPECTION - Neurological Exam Neurological Exam: Alert, Awake, Oriented x3 - Psychiatric Exam Psychiatric exam: Normal Affect, Normal Mood - Skin Skin Exam: Dry, Normal Color, Warm Assessment and Plan - Assessment and Plan (Free Text) Assessment: 42 year old female with PMH vertigo who presents for worsening dizziness and right sided weakness: Worsening dizziness and right sided weakness: - Meclizine 25 mg PO q6 fe - valium 5 mg PO bid - MRI brain - PT eval - zofran prn - regular diet - Neurology consulted. Appreciate recs. PPX: chris, scds Case discussed with Dr Sharp. Alba Espinosa, PGY1 <Warner Sharp - Last Filed: 09/16/17 17:30> Objective - Vital Signs/Intake and Output Vital Signs (last 24 hours): Temp Pulse Resp BP Pulse Ox 97.0 F L 72 20 103/70 98 09/16/17 06:00 09/16/17 06:00 09/16/17 06:00 09/16/17 06:00 09/16/17 06:00 Intake and Output: 09/16/17 09/16/17 06:59 18:59 Intake Total 600 Balance 600 - Labs Labs: 09/16/17 05:30 09/16/17 05:30 PT 11.8 SECONDS (9.4-12.5) 09/12/17 19:28 INR 1.03 (0.93-1.08) 09/12/17 19:28 Attending/Attestation - Attestation I have personally seen and examined this patient.: Yes I have fully participated in the care of the patient.: Yes I have reviewed all pertinent clinical information, including history, physical exam and plan: Yes Notes (Text): 42 year old female with PMH vertigo who presents for worsening dizziness and right sided weakness: Worsening dizziness and right sided weakness ? rule out cerebellar cva check mri likely vestibular neuritis
--- NOTE | 2017-09-13 19:00 | MRI ---
PROCEDURE: MRI BRAIN WITHOUT CONTRAST HISTORY: thin slices to r/o cerebellar stroke COMPARISON: Noncontrast head CT 09/13/2017. TECHNIQUE: Multiplanar, multisequence MR images of the brain were obtained without intravenous contrast enhancement. FINDINGS: HEMORRHAGE: None DWI: No evidence of an acute or early subacute infarction. BRAIN PARENCHYMA: There is a solitary long TR white matter punctate hyper intensity identified at the left external capsule with remaining white matter unremarkable. This includes the corpus callosum. The etiology of this finding is unclear. Contrast MRI can be performed for further characterization but the remainder the brain appears normal including the brainstem and cerebellum. There is no mass effect. There is no suspicious hemosiderin deposition and there is no suspicious extra-axial finding throughout. VENTRICLES: Unremarkable. No hydrocephalus. CRANIUM: Unremarkable. ORBITS: Grossly unremarkable. PARANASAL SINUSES/MASTOIDS: Clear VASCULAR SYSTEM: Skull base flow voids intact. OTHER FINDINGS: None. IMPRESSION: Solitary punctate long TR hyper intensity left external capsule of uncertain origin and clinical significance. Posterior fossa contents and brainstem are normal appearing as well as the remainder of the brain exclusive of the left external capsule. Contrast MRI may be performed for follow-up. Otherwise follow-up MRI is advised in 4 6 months.
[2017-09-14 07:15] VITALS: RESP 20
[2017-09-14 08:04] LABS: BASO # 0.01 K/mm3 (0.0-2.0); BASO % 0.1 % (0.0-3.0); EOS # 0.1 (0.0-0.7); EOS % 0.7 % (1.5-5.0); GRAN # 5.3 (1.4-6.5); GRAN % 52.7 % (50.0-68.0); HEMOGLOBIN 14.8 g/dL (12.0-16.0); LYMPH # 3.9 (1.2-3.4); MEAN CORPUSCULAR HEMOGLOBIN 30.8 pg (25.0-35.0); MEAN CORPUSCULAR HGB CONC 34.2 g/dl (31.0-37.0); MEAN PLATELET VOLUME 9.6 fl (7.0-11.0); MONO # 0.8 (0.1-0.6); MONO % 7.5 % (1.0-6.0); RBC 4.81 10^6/uL (3.5-6.1); RED CELL DISTRIBUTION WIDTH 12.7 % (11.5-14.5); WHITE BLOOD COUNT 10.1 10^3/ul (4.5-11.0)
[2017-09-14 08:17] LABS: ALB/GLOB RATIO 1.3 (1.1-1.8); ALBUMIN 3.3 g/dL (3.0-4.8); ALT/SGPT 28 U/L (7-56); AST/SGOT 14 U/L (14-36); BLOOD UREA NITROGEN 19 mg/dL (7-21); CALCIUM 8.5 mg/dL (8.4-10.5); GFR AFRICAN-AMERICAN > 60; GFR NON-AFRICAN AMERICAN > 60
[2017-09-14] MEDS: Enoxaparin 30 mg Syringe SC SCH (10:57)
[2017-09-14 11:22] LABS: FREE T4 1.16 ng/dL (0.78-2.19)
[2017-09-14] MEDS ORDERED: Sodium Chloride 0.9% 1,000 ML IV SCH (11:45)
--- NOTE | 2017-09-14 11:46 | CP.PCM.PN ---
Subjective - Date & Time of Evaluation Date of Evaluation: 09/14/17 Time of Evaluation: 11:45 - Subjective Subjective: Ms. Ebonie Borja was seen and examined at the bedside. She is alert, oriented in all spheres. She denies any headache, but dizziness especially with change of position and turning her head at towards the right. She is able to follow simple commands. She has mild weakness in her right side in comparison to her left.She further claims of consuming small amount of fluid. MRI of the brain showed solitary punctuate long TR hyper intensity left external capsule of uncertain origin and clinical significance. Posterior fossa contents and brainstem are normal. Orthostatic vital signs are not significant. There was no untoward events overnight. Objective - Vital Signs/Intake and Output Vital Signs (last 24 hours): Temp Pulse Resp BP Pulse Ox 97.0 F L 78 20 94/63 L 98 09/14/17 06:00 09/14/17 06:00 09/14/17 06:00 09/14/17 06:00 09/14/17 06:00 - Medications Medications: Current Medications Diazepam (Valium) 5 mg PO BID [facility] PRN Reason: Protocol Last Admin: 09/14/17 09:14 Dose: 5 mg Enoxaparin Sodium (Lovenox) 30 mg SC DAILY [facility] PRN Reason: Protocol Last Admin: 09/14/17 10:57 Dose: 30 mg Famotidine (Pepcid) 20 mg PO 1000,2200 [facility] Last Admin: 09/14/17 09:14 Dose: 20 mg Sodium Chloride (Sodium Chloride 0.9%) 1,000 mls @ 100 mls/hr IV .Q10H [facility] Stop: 09/14/17 21:44 Meclizine HCl (Antivert) 25 mg PO Q6H [facility] Ondansetron HCl (Zofran Inj) 4 mg IVP Q6H PRN PRN Reason: Nausea/Vomiting - Labs Labs: PT 11.8 SECONDS (9.4-12.5) 09/12/17 19:28 INR 1.03 (0.93-1.08) 09/12/17 19:28 - Constitutional Appears: No Acute Distress - Head Exam Head Exam: NORMAL INSPECTION - Eye Exam Eye Exam: PERRL Pupil Exam: Miosis, PERRL Additional comments: 2 mm. - Neurological Exam Neurological Exam: Alert, Awake, Oriented x3 Neuro motor strength exam: Left Upper Extremity: 5, Right Upper Extremity: 4, Left Lower Extremity: 5, Right Lower Extremity: 4 Additional comments: alert, oriented, weakness in her right side, follows commands. Assessment and Plan (1) Vertigo Assessment & Plan: Case discussed with Dr. Ramírez, continue all current medical and physical therapies. Recommend MRI of the brain with contrast, MRA of the head and neck without contrast, decrease valium 5 mg PO BID to 2 mg PO Q 12 hours, normal saline at 100 ml/hr for 1 liter. Status: Acute
--- NOTE | 2017-09-14 13:45 | CP.PCM.PN ---
<Alba Espinosa - Last Filed: 09/14/17 14:15> Subjective - Date & Time of Evaluation Date of Evaluation: 09/14/17 Time of Evaluation: 13:44 - Subjective Subjective: Alba Espinosa, PGY1, Progress Note for Dr Harvey: Patient seen and examined at beside. No acute events overnight. Reports that her dizziness has improved. However, her right sided facial paresethesias and right sided upper and lower extremity paresthesias/weakness are the same. States that she is very unsteady while getting up and ambulating. Tolerating PO diet well. Denies fever, chills, nausea, vomiting, abdominal pain, urinary symptoms. Objective - Vital Signs/Intake and Output Vital Signs (last 24 hours): Temp Pulse Resp BP Pulse Ox 97.0 F L 78 20 94/63 L 98 09/14/17 06:00 09/14/17 06:00 09/14/17 06:00 09/14/17 06:00 09/14/17 06:00 - Medications Medications: Current Medications Diazepam (Valium) 2 mg PO Q12 [facility] PRN Reason: Protocol Last Admin: 09/14/17 12:15 Dose: 2 mg Enoxaparin Sodium (Lovenox) 30 mg SC DAILY [facility] PRN Reason: Protocol Last Admin: 09/14/17 10:57 Dose: 30 mg Famotidine (Pepcid) 20 mg PO 1000,2200 [facility] Last Admin: 09/14/17 09:14 Dose: 20 mg Sodium Chloride (Sodium Chloride 0.9%) 1,000 mls @ 100 mls/hr IV .Q10H [facility] Stop: 09/14/17 21:44 Last Admin: 09/14/17 12:15 Dose: 100 mls/hr Meclizine HCl (Antivert) 25 mg PO Q6H [facility] Last Admin: 09/14/17 12:15 Dose: 25 mg Ondansetron HCl (Zofran Inj) 4 mg IVP Q6H PRN PRN Reason: Nausea/Vomiting - Labs Labs: PT 11.8 SECONDS (9.4-12.5) 09/12/17 19:28 INR 1.03 (0.93-1.08) 09/12/17 19:28 - Additional Findings Additional findings: - Constitutional Appears: Non-toxic, No Acute Distress - Head Exam Head Exam: ATRAUMATIC, NORMOCEPHALIC - Eye Exam Eye Exam: EOMI, Nystagmus, PERRL. absent: Conjunctival injection, Periorbital swelling, Periorbital tenderness, Scleral icterus Pupil Exam: NORMAL ACCOMODATION, PERRL. absent: Irregular, Miosis, Mydriatic - ENT Exam ENT Exam: Mucous Membranes Moist - Neck Exam Neck Exam: Full ROM - Respiratory Exam Respiratory Exam: Clear to Ausculation Bilateral, NORMAL BREATHING PATTERN. absent: Accessory Muscle Use, Rhonchi, Wheezes, Stridor - Cardiovascular Exam Cardiovascular Exam: RRR, +S1, +S2. absent: Murmur - GI/Abdominal Exam GI & Abdominal Exam: Soft, Normal Bowel Sounds. absent: Firm, Guarding, Rigid, Tenderness, Organomegaly - Extremities Exam Extremities Exam: Normal Inspection. absent: Calf Tenderness, Pedal Edema - Back Exam Back Exam: NORMAL INSPECTION - Neurological Exam Neurological Exam: Alert, Awake, Oriented x3 Motor strength: RUE and RLE 3/5; LUE and LLE 4-5/5. Sensation: RUE and RLE: decreased. LUE and LLE: intact CN II-XII intact except CN VII (V1, V2, V3 - right side decreased sensation) - Psychiatric Exam Psychiatric exam: Normal Affect, Normal Mood - Skin Skin Exam: Dry, Normal Color, Warm Assessment and Plan - Assessment and Plan (Free Text) Assessment: 42 year old female with PMH vertigo who presents for worsening dizziness and right sided weakness: Worsening dizziness and right sided weakness: 2/2 multiple sclerosis vs other demyelinating conditions vs CVA vs vestibular neuritis vs viral labrynthitis - Meclizine 25 mg PO q6 fe - valium 5 mg PO bid - MRI brain shows solaitary long TR white matter punctate hyperintensity identified at left external capsule. recommend contrast brain MRI or repeat MRI in 406 months - MRI brain with gadolinium contrast, MRI brain and neck - Orthostatic vital signs negative. - PT eval recommends acute rehab - zofran prn - regular diet - Neurology consulted. Appreciate recs. PPX: chris, sukis Case discussed with Dr Harvey. Alba Espinosa, PGY1 <Saúl Harvey - Last Filed: 09/14/17 15:45> Objective - Vital Signs/Intake and Output Vital Signs (last 24 hours): Temp Pulse Resp BP Pulse Ox 97.0 F L 78 20 94/63 L 98 09/14/17 06:00 09/14/17 06:00 09/14/17 06:00 09/14/17 06:00 09/14/17 06:00 - Medications Medications: Current Medications Diazepam (Valium) 2 mg PO Q12 FE PRN Reason: Protocol Last Admin: 09/14/17 12:15 Dose: 2 mg Enoxaparin Sodium (Lovenox) 30 mg SC DAILY FE PRN Reason: Protocol Last Admin: 09/14/17 10:57 Dose: 30 mg Famotidine (Pepcid) 20 mg PO 1000,2200 [facility] Last Admin: 09/14/17 09:14 Dose: 20 mg Sodium Chloride (Sodium Chloride 0.9%) 1,000 mls @ 100 mls/hr IV .Q10H [facility] Stop: 09/14/17 21:44 Last Admin: 09/14/17 12:15 Dose: 100 mls/hr Meclizine HCl (Antivert) 25 mg PO Q6H [facility] Last Admin: 09/14/17 12:15 Dose: 25 mg Ondansetron HCl (Zofran Inj) 4 mg IVP Q6H PRN PRN Reason: Nausea/Vomiting - Labs Labs: PT 11.8 SECONDS (9.4-12.5) 09/12/17 19:28 INR 1.03 (0.93-1.08) 09/12/17 19:28 Attending/Attestation - Attestation I have personally seen and examined this patient.: Yes I have fully participated in the care of the patient.: Yes I have reviewed all pertinent clinical information, including history, physical exam and plan: Yes Notes (Text): Patient seen and examined with the residents. Agree with above symptoms as mentioned with RUE weakness and decreased sensation. blurred vision concerning for optic neuritis. Will order MRI w/contrast for possible MS If negative - will repeat imaging in 6 months. PT/OT and possibly inpt rehab
[2017-09-14] MEDS ORDERED: Gadodiamide 287 MG/ML VIAL (15ML) IV ONE (13:57)
--- NOTE | 2017-09-14 14:41 | MRI ---
PROCEDURE: MRI BRAIN WITH CONTRAST HISTORY: right sided weakness and dizziness, r/o MS, CVA COMPARISON: Nonenhanced MRI 09/13/2017 TECHNIQUE: Multiplanar MR images were obtained with contrast. 15 cc of Omniscan were injected FINDINGS: BRAIN PARENCHYMA: No mass,mass effect or edema. The previous nonenhanced study showed a small focus of hyperintensity in the left external capsule. There is no corresponding abnormality on postcontrast imaging ENHANCEMENT: No abnormal intracranial enhancement. VENTRICLES: Unremarkable. No hydrocephalus. CRANIUM: Unremarkable. ORBITS: Grossly unremarkable. PARANASAL SINUSES/MASTOIDS: Clear VASCULAR SYSTEM: Skull base flow voids intact. OTHER FINDINGS: None . IMPRESSION: Negative study
--- NOTE | 2017-09-14 14:44 | MRI ---
PROCEDURE: Magnetic Resonance Angiography Brain HISTORY: vertigo COMPARISON: None available. TECHNIQUE: 3D time of flight MR angiography of the intracranial arteries was performed. Rotating maximum intensity projection images were generated. FINDINGS: INTERNAL CAROTID ARTERIES: Unremarkable. The skull base, petrous, cavernous and supraclinoid segments are bilaterally widely patient. ANTERIOR CEREBRAL ARTERIES: Unremarkable. A1 and A2 segments are widely patent. Smaller distal branches unremarkable, as visualized. MIDDLE CEREBRAL ARTERIES: Unremarkable. M1 and M2 segments are widely patent. Perisylvian branches grossly symmetric. POSTERIOR CIRCULATION: Basilar Artery: Unremarkable. Distal Vertebral Arteries: Unremarkable. Posterior Cerebral Arteries: Unremarkable. Posterior Inferior Cerebellar Arteries: Unremarkable. ANEURYSM/ VASCULAR MALFORMATIONS: None. OTHER FINDINGS: None. IMPRESSION: Unremarkable MR angiography of the brain.
--- NOTE | 2017-09-14 14:46 | MRI ---
PROCEDURE: MR Angiography of the neck without contrast HISTORY: vertigo COMPARISON: None available. TECHNIQUE: 3D [id number] angiography of the neck was performed. Rotating maximum intensity projection images of the cervical carotid and vertebral arteries were generated. The origins of the common carotid arteries were not visualized, which is a limitation inherent to the non-contrast time of flight technique. FINDINGS: RIGHT CAROTID ARTERIES: Common Carotid Artery: Normal. Carotid Bifurcation: Normal. Internal Carotid Artery:Normal. External Carotid Artery (proximal branches): Normal. LEFT CAROTID ARTERIES: Common Carotid Artery: Normal. Carotid Bifurcation: Normal. Internal Carotid Artery:Normal. External Carotid Artery (proximal branches): Normal. VERTEBRAL ARTERIES: Right Vertebral Artery: Normal. Left Vertebral Artery: Normal. OTHER FINDINGS: None. IMPRESSION: Normal MR Angiography of the neck.
[2017-09-14] MEDS ORDERED: Ergocalciferol 50,000 Intl Units Cap PO SCH (19:30)
[2017-09-15 07:11] LABS: BASO # 0.01 K/mm3 (0.0-2.0); BASO % 0.1 % (0.0-3.0); EOS # 0.1 (0.0-0.7); EOS % 0.9 % (1.5-5.0); GRAN # 5.24 (1.4-6.5); GRAN % 57.1 % (50.0-68.0); HEMOGLOBIN 13.9 g/dL (12.0-16.0); LYMPH # 3.3 (1.2-3.4); LYMPH % 35.4 % (22.0-35.0); MEAN CELL VOLUME 91.7 fl (80.0-105.0); MEAN CORPUSCULAR HEMOGLOBIN 30.3 pg (25.0-35.0); MONO # 0.6 (0.1-0.6); MONO % 6.5 % (1.0-6.0); RBC 4.59 10^6/uL (3.5-6.1); RED CELL DISTRIBUTION WIDTH 12.8 % (11.5-14.5); WHITE BLOOD COUNT 9.2 10^3/ul (4.5-11.0)
[2017-09-15 07:28] LABS: ALB/GLOB RATIO 1.2 (1.1-1.8); ALBUMIN 2.9 g/dL (3.0-4.8); ALT/SGPT 27 U/L (7-56); AST/SGOT 19 U/L (14-36); BLOOD UREA NITROGEN 15 mg/dL (7-21); CALCIUM 8.2 mg/dL (8.4-10.5); GFR AFRICAN-AMERICAN > 60; GFR NON-AFRICAN AMERICAN > 60
[2017-09-15] MEDS: Enoxaparin 30 mg Syringe SC SCH (09:56)
--- NOTE | 2017-09-15 11:50 | CP.PCM.PN ---
Subjective - Date & Time of Evaluation Date of Evaluation: 09/15/17 Time of Evaluation: 11:49 - Subjective Subjective: Ms. Correa was seen and examined at the bedside. She is alert, oriented, denies any headache, claims of dizziness improved from previous examination. She is able to follow simple commands. There was no untoward events overnight. Objective - Vital Signs/Intake and Output Vital Signs (last 24 hours): Temp Pulse Resp BP Pulse Ox 97.5 F L 66 20 107/73 99 09/15/17 06:00 09/15/17 06:00 09/15/17 06:00 09/15/17 06:00 09/15/17 06:00 Intake and Output: 09/15/17 09/15/17 06:59 18:59 Intake Total 1360 Output Total 0 Balance 1360 - Medications Medications: Current Medications Diazepam (Valium) 2 mg PO Q12 [facility] PRN Reason: Protocol Last Admin: 09/15/17 09:55 Dose: 2 mg Enoxaparin Sodium (Lovenox) 30 mg SC DAILY [facility] PRN Reason: Protocol Last Admin: 09/15/17 09:56 Dose: 30 mg Ergocalciferol (Drisdol 50,000 Intl Units Cap) 1 cap PO Q7D [facility] Last Admin: 09/14/17 21:09 Dose: 1 cap Famotidine (Pepcid) 20 mg PO 1000,2200 [facility] Last Admin: 09/15/17 09:56 Dose: 20 mg Meclizine HCl (Antivert) 25 mg PO Q6H [facility] Last Admin: 09/15/17 05:49 Dose: 25 mg Ondansetron HCl (Zofran Inj) 4 mg IVP Q6H PRN PRN Reason: Nausea/Vomiting - Labs Labs: 09/15/17 06:00 09/15/17 06:00 PT 11.8 SECONDS (9.4-12.5) 09/12/17 19:28 INR 1.03 (0.93-1.08) 09/12/17 19:28 - Constitutional Appears: No Acute Distress - Eye Exam Pupil Exam: PERRL - Neurological Exam Neurological Exam: Alert, Awake, Oriented x3 Neuro motor strength exam: Left Upper Extremity: 5, Right Upper Extremity: 4, Left Lower Extremity: 5, Right Lower Extremity: 4 Additional comments: Neurological unchanged from previous examination. Assessment and Plan (1) Vertigo Assessment & Plan: Case discussed with Dr. Ramírez, continue all current medical, physical, and occupational therapies. Recommend Pt/ OT post discharge. Recommend to follow up with an outpatient neurologist, patient preferred Dr. Olmstead in [place] due to its proximity to their residence and been seeing Dr. Olmstead. Status: Acute
[2017-09-15] MEDS ORDERED: Gadodiamide 287 MG/ML VIAL (15ML) IV ONE (15:23)
--- NOTE | 2017-09-15 16:25 | MRI ---
PROCEDURE: MR LUMBAR SPINE WITH AND WITHOUT CONTRAST HISTORY: R/O MS COMPARISON: None available. TECHNIQUE: Multiecho multiplanar sequences were performed through the lumbar spine with and without the use of intravenous contrast. FINDINGS: Normal lumbar lordosis. Vertebral body heights are preserved. Marrow signal unremarkable. Conus medullaris unremarkable at the level of T12 Paraspinal soft tissues are unremarkable. No abnormal enhancement. T12-L1: No disc herniation, spinal canal stenosis or neural foraminal narrowing. L1-2: No disc herniation, spinal canal stenosis or neural foraminal narrowing. L2-3: No disc herniation, spinal canal stenosis or neural foraminal narrowing. L3-4: No disc herniation, spinal canal stenosis or neural foraminal narrowing. L4-5: No disc herniation, spinal canal stenosis or neural foraminal narrowing. L5-S1: No disc herniation, spinal canal stenosis or neural foraminal narrowing. OTHER FINDINGS: None. IMPRESSION: Unremarkable pre and post contrast enhanced MRI of the lumbar spine.
--- NOTE | 2017-09-15 16:28 | MRI ---
PROCEDURE: MR CERVICAL SPINE WITH AND WITHOUT CONTRAST HISTORY: R/O MS COMPARISON: None available. TECHNIQUE: Multiecho multiplanar sequences were performed through the cervical spine with and without the use of intravenous contrast. 15 cc of Omniscan FINDINGS: Normal lordotic curvature. Craniocervical junction unremarkable. Vertebral body heights preserved. No marrow signal abnormality. Normal cervical cord. No paraspinal abnormality. No abnormal enhancement C2-3: No disc herniation, spinal canal stenosis or neural foraminal narrowing. C3-4: No disc herniation, spinal canal stenosis or neural foraminal narrowing. C4-5: No disc herniation, spinal canal stenosis or neural foraminal narrowing. C5-C6: No disc herniation, spinal canal stenosis or neural foraminal narrowing. C6-C7: No disc herniation, spinal canal stenosis or neuroforaminal narrowing. C7-T1: No disc herniation, spinal canal stenosis or neural foraminal narrowing. OTHER FINDINGS: None. IMPRESSION: Unremarkable pre and post contrast MRI of the cervical spine.
[2017-09-15 18:35] VITALS: O2SAT 98
--- NOTE | 2017-09-15 20:41 | CP.PCM.PN ---
<Alba Espinosa - Last Filed: 09/15/17 20:37> Subjective - Date & Time of Evaluation Date of Evaluation: 09/15/17 Time of Evaluation: 11:30 - Subjective Subjective: Alba Espinosa, PGY1, Progress Note for Dr Harvey: Patient seen and examined at beside. No acute events overnight. Reports improvement of her dizziness and weakness. Denies any new focal weakness, paresthesias, blurry vision, f/c/n/v, diarrhea, abdominal pain, urinary symptoms. Objective - Vital Signs/Intake and Output Vital Signs (last 24 hours): Temp Pulse Resp BP Pulse Ox 98.4 F 90 20 111/70 98 09/15/17 18:00 09/15/17 18:00 09/15/17 18:00 09/15/17 18:00 09/15/17 18:00 - Medications Medications: Current Medications Diazepam (Valium) 2 mg PO Q12 FE PRN Reason: Protocol Last Admin: 09/15/17 09:55 Dose: 2 mg Enoxaparin Sodium (Lovenox) 30 mg SC DAILY FE PRN Reason: Protocol Last Admin: 09/15/17 09:56 Dose: 30 mg Ergocalciferol (Drisdol 50,000 Intl Units Cap) 1 cap PO Q7D [facility] Last Admin: 09/14/17 21:09 Dose: 1 cap Famotidine (Pepcid) 20 mg PO 1000,2200 [facility] Last Admin: 09/15/17 09:56 Dose: 20 mg Meclizine HCl (Antivert) 25 mg PO Q6H [facility] Last Admin: 09/15/17 17:06 Dose: 25 mg Ondansetron HCl (Zofran Inj) 4 mg IVP Q6H PRN PRN Reason: Nausea/Vomiting - Labs Labs: 09/15/17 06:00 09/15/17 06:00 PT 11.8 SECONDS (9.4-12.5) 09/12/17 19:28 INR 1.03 (0.93-1.08) 09/12/17 19:28 - Additional Findings Additional findings: - Constitutional Appears: Non-toxic, No Acute Distress - Head Exam Head Exam: ATRAUMATIC, NORMOCEPHALIC - Eye Exam Eye Exam: EOMI, Nystagmus, PERRL. absent: Conjunctival injection, Periorbital swelling, Periorbital tenderness, Scleral icterus Pupil Exam: NORMAL ACCOMODATION, PERRL. absent: Irregular, Miosis, Mydriatic - ENT Exam ENT Exam: Mucous Membranes Moist - Neck Exam Neck Exam: Full ROM - Respiratory Exam Respiratory Exam: Clear to Ausculation Bilateral, NORMAL BREATHING PATTERN. absent: Accessory Muscle Use, Rhonchi, Wheezes, Stridor - Cardiovascular Exam Cardiovascular Exam: RRR, +S1, +S2. absent: Murmur - GI/Abdominal Exam GI & Abdominal Exam: Soft, Normal Bowel Sounds. absent: Firm, Guarding, Rigid, Tenderness, Organomegaly - Extremities Exam Extremities Exam: Normal Inspection. absent: Calf Tenderness, Pedal Edema - Back Exam Back Exam: NORMAL INSPECTION - Neurological Exam Neurological Exam: Alert, Awake, Oriented x3 Motor strength: RUE and RLE 4-5/5 (improved since yesterday); LUE and LLE 4-5/ 5. Sensation: RUE and RLE: decreased. LUE and LLE: intact CN II-XII intact except CN VII (V1, V2, V3 - right side decreased sensation) - Psychiatric Exam Psychiatric exam: Normal Affect, Normal Mood - Skin Skin Exam: Dry, Normal Color, Warm Assessment and Plan - Assessment and Plan (Free Text) Assessment: 42 year old female with PMH vertigo who presents for worsening dizziness and right sided weakness: Worsening dizziness and right sided weakness: 2/2 multiple sclerosis vs other demyelinating conditions vs CVA vs vestibular neuritis vs viral labrynthitis vs malingering - Meclizine 25 mg PO q6 fe - valium 5 mg PO bid - MRI brain shows solaitary long TR white matter punctate hyperintensity identified at left external capsule. recommend contrast brain MRI or repeat MRI in 406 months - MRI brain with gadolinium contrast shows no lesions, MRA brain and neck neg. - Lumbar and Cervical mri w and w/o contrast neg for any lesions. - Orthostatic vital signs negative. - Neuro recommends vestibular rehab, possible malingering component to patient' s symptoms. - PT reeval today recommends acute rehab - zofran prn - regular diet - Psych consulted. f/u recs - Neurology consulted. Appreciate recs. PPX: chris, scds Case discussed with Dr Harvey. Alba Espinosa, PGY1 <Saúl Harvey - Last Filed: 09/16/17 08:39> Objective - Vital Signs/Intake and Output Vital Signs (last 24 hours): Temp Pulse Resp BP Pulse Ox 97.0 F L 72 20 103/70 98 09/16/17 06:00 09/16/17 06:00 09/16/17 06:00 09/16/17 06:00 09/16/17 06:00 Intake and Output: 09/16/17 09/16/17 06:59 18:59 Intake Total 600 Balance 600 - Medications Medications: Current Medications Diazepam (Valium) 2 mg PO Q12 FE PRN Reason: Protocol Last Admin: 09/15/17 21:23 Dose: Not Given Enoxaparin Sodium (Lovenox) 30 mg SC DAILY FE PRN Reason: Protocol Last Admin: 09/15/17 09:56 Dose: 30 mg Ergocalciferol (Drisdol 50,000 Intl Units Cap) 1 cap PO Q7D [facility] Last Admin: 09/14/17 21:09 Dose: 1 cap Famotidine (Pepcid) 20 mg PO 1000,2200 [facility] Last Admin: 09/15/17 21:22 Dose: 20 mg Meclizine HCl (Antivert) 25 mg PO Q6H FE Last Admin: 09/16/17 05:23 Dose: 25 mg Ondansetron HCl (Zofran Inj) 4 mg IVP Q6H PRN PRN Reason: Nausea/Vomiting - Labs Labs: 09/16/17 05:30 09/16/17 05:30 PT 11.8 SECONDS (9.4-12.5) 09/12/17 19:28 INR 1.03 (0.93-1.08) 09/12/17 19:28 Attending/Attestation - Attestation I have personally seen and examined this patient.: Yes I have fully participated in the care of the patient.: Yes I have reviewed all pertinent clinical information, including history, physical exam and plan: Yes Notes (Text): Patient seen and examined with the residents. Agree with above Discussed case with neurology on board and recommended further imaging of the cervical/lumbar spine
[2017-09-16 06:30] LABS: BASO # 0.01 K/mm3 (0.0-2.0); BASO % 0.1 % (0.0-3.0); EOS # 0.1 (0.0-0.7); EOS % 0.9 % (1.5-5.0); GRAN # 5.22 (1.4-6.5); GRAN % 60.4 % (50.0-68.0); HEMOGLOBIN 14.2 g/dL (12.0-16.0); LYMPH # 2.8 (1.2-3.4); LYMPH % 32.8 % (22.0-35.0); MEAN CELL VOLUME 91.3 fl (80.0-105.0); MEAN CORPUSCULAR HEMOGLOBIN 30.2 pg (25.0-35.0); MEAN CORPUSCULAR HGB CONC 33.1 g/dl (31.0-37.0); MEAN PLATELET VOLUME 9.9 fl (7.0-11.0); MONO # 0.5 (0.1-0.6); MONO % 5.8 % (1.0-6.0); RBC 4.7 10^6/uL (3.5-6.1); RED CELL DISTRIBUTION WIDTH 12.6 % (11.5-14.5); WHITE BLOOD COUNT 8.7 10^3/ul (4.5-11.0)
[2017-09-16 07:11] LABS: ALB/GLOB RATIO 1.2 (1.1-1.8); ALBUMIN 3.4 g/dL (3.0-4.8); ALT/SGPT 35 U/L (7-56); AST/SGOT 31 U/L (14-36); BLOOD UREA NITROGEN 15 mg/dL (7-21); CALCIUM 8.7 mg/dL (8.4-10.5); GFR AFRICAN-AMERICAN > 60; GFR NON-AFRICAN AMERICAN > 60
[2017-09-16 07:55] VITALS: BP 103/70; PULSE 72; TEMP 97
[2017-09-16] MEDS: Enoxaparin 30 mg Syringe SC SCH (09:01)
--- NOTE | 2017-09-16 12:26 | CP.PCM.CON ---
Past Patient History - Infectious Disease Hx of Infectious Diseases: None - Past Social History Smoking Status: Never Smoked - CARDIAC Hx Cardiac Disorders: No - PULMONARY Hx Respiratory Disorders: No - NEUROLOGICAL Hx Dizziness: Yes Hx Migraine: Yes Other/Comment: VERTIGO - HEENT Hx HEENT Problems: Yes Other/Comment: RECENTLY SEEN BY ENT - RENAL Hx Chronic Kidney Disease: No - ENDOCRINE/METABOLIC Hx Endocrine Disorders: No - HEMATOLOGICAL/ONCOLOGICAL Hx Blood Disorders: No - INTEGUMENTARY Hx Dermatological Problems: No - MUSCULOSKELETAL/RHEUMATOLOGICAL Hx Falls: No - GASTROINTESTINAL Hx Gastrointestinal Disorders: No - GENITOURINARY/GYNECOLOGICAL Other/Comment: X2 - PSYCHIATRIC Hx Substance Use: No - SURGICAL HISTORY Hx Surgeries: Yes Hx Appendectomy: Yes Other/Comment: X2 - ANESTHESIA Hx Anesthesia: Yes Meds Home Medications: Home Medication List Medication Instructions Recorded Confirmed Type Meclizine [Meclizine*] 25 mg PO Q6H 7 Days tab 09/15/17 Rx diaZEpam [Valium] 2 mg PO Q12 PRN 3 Days tab 09/15/17 Rx Allergies/Adverse Reactions: Allergies Allergy/AdvReac Type Severity Reaction Status Date / Time No Known Allergies Allergy Verified 09/12/17 17:15 - Medications Medications: Current Medications Diazepam (Valium) 2 mg PO Q12 [facility] PRN Reason: Protocol Last Admin: 09/16/17 09:02 Dose: Not Given Enoxaparin Sodium (Lovenox) 30 mg SC DAILY [facility] PRN Reason: Protocol Last Admin: 09/16/17 09:01 Dose: 30 mg Ergocalciferol (Drisdol 50,000 Intl Units Cap) 1 cap PO Q7D [facility] Last Admin: 09/14/17 21:09 Dose: 1 cap Famotidine (Pepcid) 20 mg PO 1000,2200 [facility] Last Admin: 09/16/17 09:02 Dose: 20 mg Meclizine HCl (Antivert) 25 mg PO Q6H [facility] Last Admin: 09/16/17 05:23 Dose: 25 mg Ondansetron HCl (Zofran Inj) 4 mg IVP Q6H PRN PRN Reason: Nausea/Vomiting Results - Vital Signs Recent Vital Signs: Last Vital Signs Temp 97.0 F L 09/16/17 06:00 Pulse 72 09/16/17 06:00 Resp 20 09/16/17 06:00 BP 103/70 09/16/17 06:00 Pulse Ox 98 09/16/17 06:00 - Labs Result Diagrams: 09/16/17 05:30 09/16/17 05:30 Labs: Laboratory Results - last 24 hr 09/16/17 09/16/17 05:30 05:30 WBC 8.7 RBC 4.70 Hgb 14.2 Hct 42.9 MCV 91.3 MCH 30.2 MCHC 33.1 RDW 12.6 Plt Count 195 MPV 9.9 Gran % 60.4 Lymph % (Auto) 32.8 [place] % (Auto) 5.8 Eos % (Auto) 0.9 L Baso % (Auto) 0.1 Gran # 5.22 Lymph # (Auto) 2.8 [place] # (Auto) 0.5 Eos # (Auto) 0.1 Baso # (Auto) 0.01 Sodium 141 Potassium 4.2 Chloride 102 Carbon Dioxide 31 Anion Gap 12 BUN 15 Creatinine 0.6 L Est GFR ( Amer) > 60 Est GFR (Non-Af Amer) > 60 Random Glucose 82 Calcium 8.7 Total Bilirubin 0.4 AST 31 ALT 35 Alkaline Phosphatase 55 Total Protein 6.2 Albumin 3.4 Globulin 2.8 Albumin/Globulin Ratio 1.2
--- NOTE | 2017-09-16 12:28 | CP.PCM.DIS ---
Provider - Provider Date of Admission: 09/14/17 09:24 Attending physician: Morgan Nash MD Primary care physician: Gavin Hirsch MD Consults: Neuro Ramírez Time Spent in preparation of Discharge (in minutes): 60 Diagnosis - Discharge Diagnosis (1) Vestibular neuritis Status: Acute (2) Migraine Status: Acute (3) Vertigo Status: Acute Hospital Course - Lab Results Lab Results: Most Recent Lab Values WBC 8.7 10^3/ul (4.5-11.0) 09/16/17 05:30 RBC 4.70 10^6/uL (3.5-6.1) 09/16/17 05:30 Hgb 14.2 g/dL (12.0-16.0) 09/16/17 05:30 Hct 42.9 % (36.0-48.0) 09/16/17 05:30 MCV 91.3 fl (80.0-105.0) 09/16/17 05:30 MCH 30.2 pg (25.0-35.0) 09/16/17 05:30 MCHC 33.1 g/dl (31.0-37.0) 09/16/17 05:30 RDW 12.6 % (11.5-14.5) 09/16/17 05:30 Plt Count 195 10^3/uL (120.0-450.0) 09/16/17 05:30 MPV 9.9 fl (7.0-11.0) 09/16/17 05:30 Gran % 60.4 % (50.0-68.0) 09/16/17 05:30 Lymph % (Auto) 32.8 % (22.0-35.0) 09/16/17 05:30 [place] % (Auto) 5.8 % (1.0-6.0) 09/16/17 05:30 Eos % (Auto) 0.9 % (1.5-5.0) L 09/16/17 05:30 Baso % (Auto) 0.1 % (0.0-3.0) 09/16/17 05:30 Gran # 5.22 (1.4-6.5) 09/16/17 05:30 Lymph # (Auto) 2.8 (1.2-3.4) 09/16/17 05:30 [place] # (Auto) 0.5 (0.1-0.6) 09/16/17 05:30 Eos # (Auto) 0.1 (0.0-0.7) 09/16/17 05:30 Baso # (Auto) 0.01 K/mm3 (0.0-2.0) 09/16/17 05:30 PT 11.8 SECONDS (9.4-12.5) 09/12/17 19:28 INR 1.03 (0.93-1.08) 09/12/17 19:28 Sodium 141 mmol/L (132-148) 09/16/17 05:30 Potassium 4.2 mmol/L (3.6-5.0) 09/16/17 05:30 Chloride 102 mmol/L (98-107) 09/16/17 05:30 Carbon Dioxide 31 mmol/L (21-33) 09/16/17 05:30 Anion Gap 12 (10-20) 09/16/17 05:30 BUN 15 mg/dL (7-21) 09/16/17 05:30 Creatinine 0.6 mg/dl (0.7-1.2) L 09/16/17 05:30 Est GFR ( Amer) > 60 09/16/17 05:30 Est GFR (Non-Af Amer) > 60 09/16/17 05:30 Random Glucose 82 mg/dL (70-110) 09/16/17 05:30 Calcium 8.7 mg/dL (8.4-10.5) 09/16/17 05:30 Phosphorus 5.0 mg/dL (2.5-4.5) H 09/13/17 05:30 Magnesium 2.2 mg/dL (1.7-2.2) 09/13/17 05:30 Total Bilirubin 0.4 mg/dL (0.2-1.3) 09/16/17 05:30 AST 31 U/L (14-36) 09/16/17 05:30 ALT 35 U/L (7-56) 09/16/17 05:30 Alkaline Phosphatase 55 U/L (38-126) 09/16/17 05:30 Total Protein 6.2 g/dL (5.8-8.3) 09/16/17 05:30 Albumin 3.4 g/dL (3.0-4.8) 09/16/17 05:30 Globulin 2.8 gm/dL 09/16/17 05:30 Albumin/Globulin Ratio 1.2 (1.1-1.8) 09/16/17 05:30 Vitamin B12 720 pg/mL (239-931) 09/14/17 08:00 25-OH Vitamin D Total 14.5 NG/ML (30.0-100.0) L 09/14/17 08:00 Free T4 1.16 ng/dL (0.78-2.19) 09/14/17 09:47 Free T3 pg/mL 4.44 pg/mL (2.77-5.27) 09/14/17 08:00 TSH 3rd Generation 2.17 mIU/mL (0.46-4.68) 09/14/17 09:47 Beta HCG, Quant < 2.39 mIU/mL (0-6.15) 09/12/17 18:30 Urine Color Yellow (YELLOW) 09/13/17 11:31 Urine Appearance Clear (CLEAR) 09/13/17 11:31 Urine pH 6.0 (4.7-8.0) 09/13/17 11:31 Ur Specific [place] <= 1.005 (1.005-1.035) 09/13/17 11:31 Urine Protein Negative mg/dL (<30 mg/dL) 09/13/17 11:31 Urine Glucose (UA) Negative mg/dL (NEGATIVE) 09/13/17 11:31 Urine Ketones Negative mg/dL (NEGATIVE) 09/13/17 11:31 Urine Blood Negative (NEGATIVE) 09/13/17 11:31 Urine Nitrate Negative (NEGATIVE) 09/13/17 11:31 Urine Bilirubin Negative (NEGATIVE) 09/13/17 11:31 Urine Urobilinogen 0.2 E.U./dL (<1 E.U./dL) 09/13/17 11:31 Ur Leukocyte Esterase Negative [place]/uL (NEGATIVE) 09/13/17 11:31 Urine HCG, Qual Negative (NEGATIVE) 09/13/17 11:31 Rheumatoid Factor <14 IU/mL (<14) 09/14/17 11:00 Lyme Disease Screen <0.90 index 09/14/17 11:00 Influenza Typ A,B (EIA) Negative for flu a/b (NEGATIVE) 09/13/17 12:30 - Hospital Course Hospital Course: 42 year old female with PMHx vertigo who presents for worsening dizziness. Patient states that she was diagnosed with vertigo about 4 weeks ago. She went to see ENT who prescribed a Prednisone taper of which the last dose was finished [employer] to ED. Pt also complains of right sided facial and upper/lower extremity weakness. Brain MRI with out contrast showed solitary long TR white matter punctate hyperintensity identified at left external capsule. recommend contrast brain MRI or repeat MRI in 4-6 months. Contrast brain MRI did not show any lesions. Cervical and lumbar mri w and w/o contrast were unremarkable. Head and neck MRA unremarkable. PT recommended Acute rehab. Neurology recommended vestibular rehab. She was treated with meclizine, valium for her dizziness. Today, she reports no dizziness. Psych was also consulted, stated that secondary gain is unlikely. Patient was denied acute rehab by insurance, pt okay with outpatient PT, OT and vestibular rehab. Pt prescribed meds as per JUN. Pt to follow up outpatient with neurology, PMD. Repeat MRI with gadolinium in 4-6 weeks. Case discussed with Dr Sharp. Alba Espinosa, PGY1 Discharge Exam - Head Exam Head Exam: NORMAL INSPECTION - Eye Exam Eye Exam: EOMI, PERRL. absent: Nystagmus, Scleral icterus Pupil Exam: NORMAL ACCOMODATION, PERRL. absent: Irregular, Miosis, Mydriatic, Unequal - ENT Exam ENT Exam: Mucous Membranes Moist - Neck Exam Neck exam: Full Rom - Respiratory Exam Respiratory Exam: Clear to PA & Lateral, NORMAL BREATHING PATTERN - Cardiovascular Exam Cardiovascular Exam: REGULAR RHYTHM, RRR, +S1, +S2. absent: Systolic Murmur - GI/Abdominal Exam GI & Abdominal Exam: Normal Bowel Sounds, Soft. absent: Firm, Guarding, Organomegaly, Rebound, Tenderness - Extremities Exam Extremities exam: normal inspection - Back Exam Back exam: NORMAL INSPECTION - Neurological Exam Neurological exam: Alert, Oriented x3 - Psychiatric Exam Psychiatric exam: Normal Affect, Normal Mood - Skin Skin Exam: Dry, Normal Color, Warm Discharge Plan - Discharge Medications Prescriptions: diaZEpam [Valium] 2 mg PO Q12 PRN 3 Days tab PRN Reason: Dizziness Meclizine [Meclizine*] 25 mg PO Q6H 7 Days tab - Follow Up Plan Condition: STABLE Disposition: HOME/ ROUTINE Instructions: Labyrinthitis, Vertigo (a Type of Dizziness) (DC) Additional Instructions: Follow up with primary care doctor in 1 week. Outpatient PT, OT and vestibular rehab. Repeat MRI brain with gadolinium contrast 4-6 weeks. Take meclizine for dizziness and valium as needed Follow up with Dr Olmstead outpatient in 1 week. Return to ER for any concerns. Referrals: Gavin Hirsch MD [Primary Care Provider] -
--- NOTE | 2017-09-16 17:43 | CON ---
DATE: HISTORY OF PRESENT ILLNESS: The patient is 42-year-old female with not known previous psychiatric history. The patient was admitted on the medical side for episodes of dizziness as well as vertigo. The patient had described numbness on her right side of the body. Psych consult was called for evaluation of possible secondary gain as well as conversion disorder. The patient was seen and examined. The patient presented to be alert and oriented, pleasant, cooperative. The patient reported that she had potty for her 15-year-old daughter on Tuesday. On Tuesday, the patient became weak, lightheaded, dizziness and also has numbness on her right side. The patient reported that she was feeling overwhelmed, but not depressed. The patient denied thoughts of harming herself or others. The patient has supportive family. The patient works as a first assistant. The patient denied feeling anxious. Denied hearing voices. Denied seeing things. The patient denied using drugs. Denied alcohol consumption. VITAL SIGNS: Stable. Temperature 97, pulse 72, blood pressure 103/70, respiration 20, oxygen saturation is 98. MEDICATIONS: Reviewed. The patient was on Valium, Lovenox, Drisdol, Pepcid, Antivert, and Zofran. LABORATORY DATA: Reviewed. Initially, the patient had leukocytosis, but now within normal limits. Chemistry within normal limits. Urinalysis within normal limits. Immunology did not show any immunodeficiency. Serology negative. The patient had multiple tests, which came back all negative. The patient was seen by Neurology team. The patient had MRI of lumbar and cervical, neck MRA, head MRA and everything came back negative. Neurology recommended follow up with outpatient provider within 1 week. MENTAL STATUS EXAMINATION: The patient presented to be alert and oriented, pleasant, cooperative. The patient reported that she feels better and she went back to her normal well-being. The patient describes her mood as better. Affect was reactive. Mood congruent. Thought process, coherent and goal directed. Thought content, the patient denied visual, auditory, or tactile hallucinations. Denied paranoid ideation. The patient denied hearing voices or seeing things. Denied thoughts of harming herself or others. Denied intent or plan. Insight and judgment seems to be fair. Impulses are well controlled. IMPRESSION: Most likely, the patient has transient ischemic attack or vertigo. There are no signs of secondary gain. Cultural syndrome maybe possible at this point. PLAN: The patient has followup appointment with the neurologist. There is no need for the patient to be followed up with the psychiatrist. The patient has supportive family. Has job. No drugs involved into the patient's life. This publicity writer will sign off. Should you have any questions, give me a call back. Deirdre Coker MD
== END 2017-09-16 14:05 | disposition home or self-care (01) | DRG 73 ==
LOC: ED 17:06 → ERH 20:15 → 3RNO 22:26 → OBSVTOIN 09-14 09:24
PROVIDERS: ADMIT Internal Medicine; ATTEND Internal Medicine
DX: H93.3X9 Disorders of unspecified acoustic nerve (principal); G43.909 Migraine, unspecified, not intractable, without status migrainosus; H93.12 Tinnitus, left ear; R42 Dizziness and giddiness; Z90.49 Acquired absence of other specified parts of digestive tract; Z98.891 History of uterine scar from previous surgery